=== PATIENT | female | born 1970 | race Caucasian/White ===

== ENCOUNTER → 2020-09-17 10:02 | Outpatient (CLI) | payer OTHER, SELFPAY ==
--- NOTE | 2020-09-17 10:07 | RAD_ITS ---
STUDY: X-RAY - LUMBAR SPINE REASON FOR EXAM: Female, 50 years old. BACK PAIN TECHNIQUE: 4 view(s) of the lumbar spine were obtained. COMPARISON: None FINDINGS: Normal lumbar lordosis. There is no substantial scoliosis. There is a normal alignment of the vertebrae. Normal vertebral bodies and endplates. Normal disc space heights. The soft tissue structures are unremarkable. RAD/Lumbar Spine 2 or 3 Views IMPRESSION: Normal x-ray examination of the lumbar spine. Electronically Signed: Kenyon Linn MD at 14:34 EDT , Service support ,
== END ==
PROVIDERS: PCP Family Medicine; Referring Provider Anesthesiology Pain Medicine; Visit Provider Anesthesiology Pain Medicine
DX: M54.9 Dorsalgia, unspecified (principal)
CPT/HCPCS: 72100

== ENCOUNTER → 2024-09-17 | Outpatient (CLI) | payer OTHER, SELFPAY ==
--- NOTE | 2024-09-17 14:00 | MRI_ITS ---
PROCEDURE: SPINE LUMBAR (ROUTINE) 09/17/2024 REASON FOR EXAM: PAIN TECHNIQUE: Multiplanar and multisequence images were obtained without IV contrast administration. FINDINGS: There is normal lumbar vertebral body height and alignment with normal conus. No tethered cord. No cauda equina compression. The abdominal aorta exhibits normal caliber and there are no paravertebral mass lesions. L1-L2, L2-L3, L3-L4 are unremarkable. Mild facet arthrosis at L4-5 without spinal stenosis. At L5-S1 degenerative disc space narrowing is present with inferior foraminal narrowing but no nerve root impingement or significant spinal stenosis MRI/Spine Lumbar (Routine) IMPRESSION: Mild degenerative changes without significant spinal canal narrowing or nerve r oot compression [facility]
== END | disposition home or self-care (01) ==
LOC: MRI 13:33
PROVIDERS: PCP Family Medicine; Referring Provider Student in an Organized Health Care Education/Training Program; Visit Provider Student in an Organized Health Care Education/Training Program
DX: M51.369 Other intervertebral disc degeneration, lumbar region without mention of lumbar back pain or lower extremity pain (principal)
CPT/HCPCS: 72148

== ENCOUNTER 2024-12-21 14:32 | Observation (INO) | payer OTHER, SELFPAY ==
--- NOTE | 2024-12-07 16:47 | PAT.ANESEVAL ---
Pre-Assessment Diagnosis/Proposed Procedure Planned Operative Procedure(s): Transforaminal Lumbar Interbody Fusion L5-S1 Anesthesia History Anesthesia History - ocular care aide: Anesthesia History - ocular care aide Hx Hospitalization No 12/07/24 10:21 Any Problems With Anesthesia No 12/07/24 10:21 Cholinesterase deficiency No 12/07/24 10:21 You/Your Family Experience No 12/07/24 10:21 fever (hyperthermia) with Relationship Recent Exposure to Contagious Disease Does patient have nerve No 12/07/24 10:21 stimulator Patient instructed to have device shut off --Does patient have Pacemaker or ICD? When Was Last Pacemaker Check QUESTION #4 FULL TEXT: You/Your Family Experience fever (hyperthermia) with Anesthesia Last Oral Intake Last Oral intake: Last Oral Intake NPO since Meds taken in AM with sips of water? Meds patient instructed to take am of surgery PONV PONV - ocular care aide: PONV - ocular care aide Female Yes 12/07/24 10:21 HX of Motion Sickness No 12/07/24 10:21 HX of N/V After Surgery No 12/07/24 10:21 Non-Smoker Yes 12/07/24 10:21 Duration of Surgery greater Yes 12/07/24 10:21 than 60 minutes Number of Risk Factors 3 12/07/24 10:21 PONV Score Moderate Risk 12/07/24 10:21 Height & Weight Height & Weight: Anesthesia: Height & Weight Height 5 ft 5 in 10/04/24 12:53 Respiratory Assessment Respiratory Assessment - ocular care aide: Respiratory Tract Infection Hx - ocular care aide Hx Respiratory Tract Infection No 12/07/24 10:21 STOP Sleep Apnea STOP Sleep Apnea - ocular care aide: STOP Sleep Apnea - ocular care aide Hx Hypertension No 12/07/24 10:21 Hx Sleep Apnea No 12/07/24 10:21 CPAP BIPAP Do you snore loudly (louder No 12/07/24 10:21 than talking or can be heard Do you often feel tired/ No 12/07/24 10:21 fatigued/ sleepy during daytime? Has anyone observed you stop No 12/07/24 10:21 breathing during sleep? STOP Results Negative 12/07/24 10:21 QUESTION #5 FULL TEXT : Do you snore loudly (louder than talking or can be heard through closed doors)? 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 Specify any problems Hx of Preganancy in last 3 No 12/07/24 10:21 Months Nurse Filling Out Transfusion VCHRISTIN 12/07/24 10:21 & Questions: Date: 12/07/24 12/07/24 10:21 Time: 10:22 12/07/24 10:21 Patient unable to answer at this time (ie. confused, unrespo /Reproduction History /Reproductive History - ocular care aide: /Reproductive Hx- ocular care aide Hx Now No 12/07/24 10:21 Gestational Age (in weeks): EDC: Hx Hx Para Hx Section SAB No 12/07/24 10:21 [facility] Medical History (Updated 12/07/24 @ 10:21 by Meenakshi Phillips) Wears glasses Post-menopausal History of steroid therapy Thyroid disease DVT (deep venous thrombosis) Back pain History of hiatal hernia Asthma Gastric reflux Damage to cervix after ectopic Normal hysteroscopy Gallbladder abscess Cancer Depression Home Medications ?Medication ?Instructions ?Recorded ?Last Taken ?Type omeprazole magnesium 20 mg 20 mg PO QDAY 07/05/24 Unknown History tablet,delayed release (Prilosec OTC) cetirizine 10 mg capsule (Zyrtec) 10 mg PO QDAY PRN allergy symptoms 10/04/24 Unknown History diaper,brief,adult,disposable 10/04/24 Unknown History (Khushboo Super Brief) lactobacillus combination no.9 4 4,000 mmu cells PO QDAY 10/04/24 Unknown History billion cell capsule (Adult 50 Plus Probiotic) oxycodone 5 mg capsule 5 mg PO BID PRN pain 10/04/24 Unknown History CORTISTOP 2 tab PO DAILY 12/07/24 Unknown History THYROMIN 1 tab PO DAILY 12/07/24 Unknown History albuterol sulfate 90 mcg/actuation 2 puff inhalation Q4H PRN PRN 12/07/24 Unknown History aerosol inhaler shortness of breath or wheezing cholecalciferol (vitamin D3) 50 100 mcg PO QDAY 12/07/24 Unknown History mcg (2,000 unit) capsule (Vitamin D3) vitamin B complex (Balanced B-50 1 tab PO DAILY 12/07/24 Unknown History tablet) Allergy/AdvReac Type Severity Reaction Status Date / Time No Known Allergies Allergy Verified 12/07/24 10:07 Family History Mother No problems noted. Father No problems noted. Surgical History (Updated 12/07/24 @ 10:21 by Meenakshi Phillips) Hx of rotator cuff surgery Hx laparoscopic cholecystectomy Hx of hysterectomy Delivery by section Social History Smoking Status: Never smoker alcohol intake: current Audit: Pertinent Findings Pertinent Findings EKG Perinent findings: EKG 09 Sep 2024. Normal sinus rhythm Recommendation Anesthesia Recommendation Anesthesia recommendation: OPTIMIZED for anesthesia
[2024-12-09 11:24] LABS: Hematocrit 43.7 % (37-47); Hemoglobin 14.3 g/dL (12.0-15.0); Immature Granulocytes Count 0.030 X10^3/uL (0.0-0.0); Mean Corp Hgb Conc 32.7 g/dL (32-36); Mean Corpuscular Volume 91.2 fL (81-99); Mean Platelet Vol. 12.7 fl (6.2-12.0); NRBC Flagged by Analyzer 0 % (0-5); Platelet Count 168 K/mm3 (150-450); RBC Distribution Width CV 12.7 % (11.6-14.6); RBC Distribution Width SD 42.6 fl (35.1-43.9); Red Blood Count 4.79 M/mm3 (4.2-5.4); White Blood Count 8.2 K/mm3 (4.4-11.0)
[2024-12-09 12:02] LABS: Magnesium 2.3 mg/dL (1.5-2.2)
[2024-12-09 12:23] LABS: HIV Nonreactive (Nonreactive); Hepatitis C Antibody Nonreactive (Nonreactive)
[2024-12-09 12:25] LABS: Anion Gap 14 (5-15); BUN 12 mg/dL (4-19); BUN/Creat Ratio 11.7 RATIO (10-20); Calcium,Total 10.4 mg/dL (7.6-11.0); Carbon Dioxide 21.0 mmol/L (21.0-32.0); Chloride 102 mmol/L (98-108); Glucose 67 mg/dL (70-99); Potassium 4.7 mmol/L (3.3-5.1)
--- NOTE | 2024-12-12 12:50 | PAT.ANESEVAL ---
Pre-Assessment Diagnosis/Proposed Procedure Planned Operative Procedure(s): Transforaminal Lumbar Interbody Fusion L5-S1 Anesthesia History Anesthesia History - management trainee program stores: Anesthesia History - management trainee program stores Hx Hospitalization No 12/07/24 10:21 Any Problems With Anesthesia No 12/07/24 10:21 Cholinesterase deficiency No 12/07/24 10:21 You/Your Family Experience No 12/07/24 10:21 fever (hyperthermia) with Relationship Recent Exposure to Contagious Disease Does patient have nerve No 12/07/24 10:21 stimulator Patient instructed to have device shut off --Does patient have Pacemaker or ICD? When Was Last Pacemaker Check QUESTION #4 FULL TEXT: You/Your Family Experience fever (hyperthermia) with Anesthesia Last Oral Intake Last Oral intake: Last Oral Intake NPO since Meds taken in AM with sips of water? Meds patient instructed to take am of surgery PONV PONV - management trainee program stores: PONV - management trainee program stores Female Yes 12/07/24 10:21 HX of Motion Sickness No 12/07/24 10:21 HX of N/V After Surgery No 12/07/24 10:21 Non-Smoker Yes 12/07/24 10:21 Duration of Surgery greater Yes 12/07/24 10:21 than 60 minutes Number of Risk Factors 3 12/07/24 10:21 PONV Score Moderate Risk 12/07/24 10:21 Height & Weight Height & Weight: Anesthesia: Height & Weight Height 5 ft 5 in 10/04/24 12:53 Respiratory Assessment Respiratory Assessment - management trainee program stores: Respiratory Tract Infection Hx - management trainee program stores Hx Respiratory Tract Infection No 12/07/24 10:21 STOP Sleep Apnea STOP Sleep Apnea - management trainee program stores: STOP Sleep Apnea - management trainee program stores Hx Hypertension No 12/07/24 10:21 Hx Sleep Apnea No 12/07/24 10:21 CPAP BIPAP Do you snore loudly (louder No 12/07/24 10:21 than talking or can be heard Do you often feel tired/ No 12/07/24 10:21 fatigued/ sleepy during daytime? Has anyone observed you stop No 12/07/24 10:21 breathing during sleep? STOP Results Negative 12/07/24 10:21 QUESTION #5 FULL TEXT : Do you snore loudly (louder than talking or can be heard through closed doors)? 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 Specify any problems Hx of Preganancy in last 3 No 12/07/24 10:21 Months Nurse Filling Out Transfusion VCHRISTIN 12/07/24 10:21 & Questions: Date: 12/07/24 12/07/24 10:21 Time: 10:22 12/07/24 10:21 Patient unable to answer at this time (ie. confused, unrespo /Reproduction History /Reproductive History - management trainee program stores: /Reproductive Hx- management trainee program stores Hx Now No 12/07/24 10:21 Gestational Age (in weeks): EDC: Hx Hx Para Hx Section SAB No 12/07/24 10:21 [facility] Medical History (Updated 12/07/24 @ 10:21 by Meenakshi Phillips) Wears glasses Post-menopausal History of steroid therapy Thyroid disease DVT (deep venous thrombosis) Back pain History of hiatal hernia Asthma Gastric reflux Damage to cervix after ectopic Normal hysteroscopy Gallbladder abscess Cancer Depression Home Medications ?Medication ?Instructions ?Recorded ?Last Taken ?Type omeprazole magnesium 20 mg 20 mg PO QDAY 07/05/24 Unknown History tablet,delayed release (Prilosec OTC) cetirizine 10 mg capsule (Zyrtec) 10 mg PO QDAY PRN allergy symptoms 10/04/24 Unknown History diaper,brief,adult,disposable 10/04/24 Unknown History (Khushboo Super Brief) lactobacillus combination no.9 4 4,000 mmu cells PO QDAY 10/04/24 Unknown History billion cell capsule (Adult 50 Plus Probiotic) oxycodone 5 mg capsule 5 mg PO BID PRN pain 10/04/24 Unknown History CORTISTOP 2 tab PO DAILY 12/07/24 Unknown History THYROMIN 1 tab PO DAILY 12/07/24 Unknown History albuterol sulfate 90 mcg/actuation 2 puff inhalation Q4H PRN PRN 12/07/24 Unknown History aerosol inhaler shortness of breath or wheezing cholecalciferol (vitamin D3) 50 100 mcg PO QDAY 12/07/24 Unknown History mcg (2,000 unit) capsule (Vitamin D3) vitamin B complex (Balanced B-50 1 tab PO DAILY 12/07/24 Unknown History tablet) Allergy/AdvReac Type Severity Reaction Status Date / Time No Known Allergies Allergy Verified 12/07/24 10:07 Family History Mother No problems noted. Father No problems noted. Surgical History (Updated 12/07/24 @ 10:21 by Meenakshi Phillips) Hx of rotator cuff surgery Hx laparoscopic cholecystectomy Hx of hysterectomy Delivery by section Social History Smoking Status: Never smoker alcohol intake: current Audit: Pertinent Findings HISTORY of Pertinent Findings History of Pertinent Findings: EKG Pertinent Findings EKG Perinent findings EKG 09 Sep 2024. Normal 12/07/24 16:48 sinus rhythm Pertinent Findings Additional pertinent findings: December 09, 2024. TSH is 11.0 Recommendation Anesthesia Recommendation Anesthesia recommendation: F/U recommended (Patient's TSH is significantly elevated at 11.0. Patient should be evaluated by primary care physician and have their thyroid hormone adjusted.)
--- NOTE | 2024-12-19 19:24 | PAT.ANESEVAL ---
Pre-Assessment Diagnosis/Proposed Procedure Planned Operative Procedure(s): Transforaminal Lumbar Interbody Fusion L5-S1 Anesthesia History Anesthesia History - vacation planner: Anesthesia History - vacation planner Hx Hospitalization No 12/07/24 10:21 Any Problems With Anesthesia No 12/07/24 10:21 Cholinesterase deficiency No 12/07/24 10:21 You/Your Family Experience No 12/07/24 10:21 fever (hyperthermia) with Relationship Recent Exposure to Contagious Disease Does patient have nerve No 12/07/24 10:21 stimulator Patient instructed to have device shut off --Does patient have Pacemaker or ICD? When Was Last Pacemaker Check QUESTION #4 FULL TEXT: You/Your Family Experience fever (hyperthermia) with Anesthesia Last Oral Intake Last Oral intake: Last Oral Intake NPO since Meds taken in AM with sips of water? Meds patient instructed to take am of surgery PONV PONV - vacation planner: PONV - vacation planner Female Yes 12/07/24 10:21 HX of Motion Sickness No 12/07/24 10:21 HX of N/V After Surgery No 12/07/24 10:21 Non-Smoker Yes 12/07/24 10:21 Duration of Surgery greater Yes 12/07/24 10:21 than 60 minutes Number of Risk Factors 3 12/07/24 10:21 PONV Score Moderate Risk 12/07/24 10:21 Height & Weight Height & Weight: Anesthesia: Height & Weight Height 5 ft 5 in 10/04/24 12:53 Respiratory Assessment Respiratory Assessment - vacation planner: Respiratory Tract Infection Hx - vacation planner Hx Respiratory Tract Infection No 12/07/24 10:21 STOP Sleep Apnea STOP Sleep Apnea - vacation planner: STOP Sleep Apnea - vacation planner Hx Hypertension No 12/07/24 10:21 Hx Sleep Apnea No 12/07/24 10:21 CPAP BIPAP Do you snore loudly (louder No 12/07/24 10:21 than talking or can be heard Do you often feel tired/ No 12/07/24 10:21 fatigued/ sleepy during daytime? Has anyone observed you stop No 12/07/24 10:21 breathing during sleep? STOP Results Negative 12/07/24 10:21 QUESTION #5 FULL TEXT : Do you snore loudly (louder than talking or can be heard through closed doors)? 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 Specify any problems Hx of Preganancy in last 3 No 12/07/24 10:21 Months Nurse Filling Out Transfusion VCHRISTIN 12/07/24 10:21 & Questions: Date: 12/07/24 12/07/24 10:21 Time: 10:22 12/07/24 10:21 Patient unable to answer at this time (ie. confused, unrespo /Reproduction History /Reproductive History - vacation planner: /Reproductive Hx- vacation planner Hx Now No 12/07/24 10:21 Gestational Age (in weeks): EDC: Hx Hx Para Hx Section SAB No 12/07/24 10:21 [facility] Medical History (Updated 12/19/24 @ 17:35 by Miranda Kim) Morbid obesity Wears glasses Post-menopausal History of steroid therapy Thyroid disease DVT (deep venous thrombosis) Back pain History of hiatal hernia Asthma Gastric reflux Damage to cervix after ectopic Normal hysteroscopy Gallbladder abscess Cancer Depression Home Medications ?Medication ?Instructions ?Recorded ?Last Taken ?Type omeprazole magnesium 20 mg 20 mg PO QDAY 07/05/24 Unknown History tablet,delayed release (Prilosec OTC) cetirizine 10 mg capsule (Zyrtec) 10 mg PO QDAY PRN allergy symptoms 10/04/24 Unknown History diaper,brief,adult,disposable 10/04/24 Unknown History (Khushboo Super Brief) lactobacillus combination no.9 4 4,000 mmu cells PO QDAY 10/04/24 Unknown History billion cell capsule (Adult 50 Plus Probiotic) oxycodone 5 mg capsule 5 mg PO BID PRN pain 10/04/24 Unknown History CORTISTOP 2 tab PO DAILY 12/07/24 Unknown History THYROMIN 1 tab PO DAILY 12/07/24 Unknown History albuterol sulfate 90 mcg/actuation 2 puff inhalation Q4H PRN PRN 12/07/24 Unknown History aerosol inhaler shortness of breath or wheezing cholecalciferol (vitamin D3) 50 100 mcg PO QDAY 12/07/24 Unknown History mcg (2,000 unit) capsule (Vitamin D3) vitamin B complex (Balanced B-50 1 tab PO DAILY 12/07/24 Unknown History tablet) magnesium 200 mg tablet 200 mg PO QDAY 12/13/24 Unknown History Allergy/AdvReac Type Severity Reaction Status Date / Time No Known Allergies Allergy Verified 12/13/24 10:35 Family History Mother No problems noted. Father No problems noted. Surgical History Hx of rotator cuff surgery Hx laparoscopic cholecystectomy Hx of hysterectomy Delivery by section Social History Smoking Status: Never smoker alcohol intake: current Audit: Pertinent Findings HISTORY of Pertinent Findings History of Pertinent Findings: EKG Pertinent Findings EKG Perinent findings EKG 09 Sep 2024. Normal 12/07/24 16:48 sinus rhythm Additional Pertinent Findings Additional pertinent findings December 09, 2024. TSH is 11. 12/12/24 12:57 0 Pertinent Findings Consult pertinent findings: Patient was seen by her PCP whom did not change anything after acknowledgment of a TSH of 11. Recommendation Anesthesia Recommendation Anesthesia recommendation: OPTIMIZED for anesthesia
[2024-12-21] VITALS (16 sets, daily range): BP systolic 96–147; BP diastolic 66–96; PULSE 80–97; RESP 12–20; TEMP 36.1–37; O2SAT 95–99; BMI 41.4; BMI 41.5
[2024-12-21] MEDS: Lactated Ringers 1,000 ML 15 ML IV (09:57)
[2024-12-21] MEDS: Magnesium 1 GM over 15 mins IV (09:58)
--- NOTE | 2024-12-21 10:20 | PCM.PRE.AN2 ---
ASA Classification* ASA Classification ASA Classification: 3 Assessment & Plan Anesthesia* Anesthesia Assessment Anesthesia Assessment: Discussed sedation and/or anesthesia options, risks, benefits, and alternatives with patient/parents/legal guardian/POA. Questions invited. The patient/parents/legal guardian/POA seems to understand and agrees to proceed with anesthesia plan. Reviewed the physical assessment, medical history, allergy history and patient home medications list prior to surgery/procedure/anesthetic and documented any changes. Performed airway and anesthesia risk assessments. Anesthesia Type Anesthesia Type: General History Source History Obtained from:: Patient and Chart Anesthesia Focused Assessment* Temperature: 97.8 F Pulse Rate: 85 Blood Pressure: 133/96 Respiratory Rate: 16 Pulse Ox: 99 Oxygen Delivery Method: Room Air Airway Assessment Mouth opens: 2 cm Mallampati Score: II Teeth Condition: Intact Neck Range of motion (ROM): Full ROM Labs Anesthesia Preop lab: CBC WBC 8.2 K/mm3 (4.4-11.0) 12/09/24 10:14 12/09/24 RBC 4.79 M/mm3 (4.2-5.4) 12/09/24 10:14 12/09/24 Hgb 14.3 g/dL (12.0-15.0) 12/09/24 10:14 12/09/24 Hct 43.7 % (37-47) 12/09/24 10:14 12/09/24 Plt Count 168 K/mm3 (150-450) 12/09/24 10:14 12/09/24 CHEMISTRY Potassium 4.7 mmol/L (3.3-5.1) 12/09/24 10:14 12/09/24 Sodium 137 mmol/L (133-145) 12/09/24 10:14 12/09/24 Magnesium 2.3 mg/dL (1.5-2.2) H 12/09/24 10:15 12/09/24 BUN 12 mg/dL (4-19) 12/09/24 10:14 12/09/24 Creatinine 1.02 mg/dL (0.70-1.20) 12/09/24 10:14 12/09/24 Glucose 67 mg/dL (70-99) L 12/09/24 10:14 12/09/24 TSH 11.000 uIU/mL (0.300-4.200) H 12/09/24 10:15 12/09/24 COAG Pre-Assessment Diagnosis/Proposed Procedure Planned Operative Procedure(s): Transforaminal Lumbar Interbody Fusion L5-S1 Anesthesia History 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 When Was Last Pacemaker Check QUESTION #4 FULL TEXT: You/Your Family Experience fever (hyperthermia) with Anesthesia Last Oral Intake Last Oral intake: Last Oral Intake NPO since 19:30 12/21/24 09:51 Meds taken in AM with sips of No 12/21/24 09:51 water? 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 Female Yes 12/07/24 10:21 HX of Motion Sickness No 12/07/24 10:21 HX of N/V After Surgery No 12/07/24 10:21 Non-Smoker Yes 12/07/24 10:21 Duration of Surgery greater Yes 12/07/24 10:21 than 60 minutes Number of Risk Factors 3 12/07/24 10:21 PONV Score Moderate Risk 12/07/24 10:21 Height & Weight Height & Weight: Anesthesia: Height & Weight Height 5 ft 5 in 12/21/24 09:51 Weight: 113 kg 12/21/24 09:51 Body Mass Index (BMI) 41.4 12/21/24 09:51 Respiratory Assessment Respiratory Assessment - supervisor aluminum fabrication: Respiratory Tract Infection Hx - supervisor aluminum fabrication Hx Respiratory Tract Infection No 12/07/24 10:21 STOP Sleep Apnea STOP Sleep Apnea - supervisor aluminum fabrication: STOP Sleep Apnea - supervisor aluminum fabrication Hx Hypertension No 12/07/24 10:21 Hx Sleep Apnea No 12/07/24 10:21 CPAP BIPAP Do you snore loudly (louder No 12/07/24 10:21 than talking or can be heard Do you often feel tired/ No 12/07/24 10:21 fatigued/ sleepy during daytime? Has anyone observed you stop No 12/07/24 10:21 breathing during sleep? STOP Results Negative 12/07/24 10:21 QUESTION #5 FULL TEXT : Do you snore loudly (louder than talking or can be heard through closed doors)? 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 Specify any problems Hx of Preganancy in last 3 No 12/07/24 10:21 Months Nurse Filling Out Transfusion VCHRISTIN 12/07/24 10:21 & Questions: Date: 12/07/24 12/07/24 10:21 Time: 10:22 12/07/24 10:21 Patient unable to answer at this time (ie. confused, unrespo /Reproduction History /Reproductive History - supervisor aluminum fabrication: /Reproductive Hx- supervisor aluminum fabrication Hx Now No 12/07/24 10:21 Gestational Age (in weeks): EDC: Hx Hx Para Hx Section SAB No 12/07/24 10:21 Active Medications Active Medications: Current Medications Generic Name Dose Route Start Last Admin Trade Name Freq PRN Reason Stop Dose Admin Acetaminophen 1,000 mg 12/21/24 11:30 12/21/24 10:01 Acetaminophen 500 Mg Tablet PO 12/21/24 11:31 1,000 mg PREOP ONE Administration Cefazolin Sodium 2 gm/ Sodium 110 mls @ 150 mls/hr 12/21/24 11:30 Chloride IV 12/21/24 12:13 INTRAOP ONE Tranexamic Acid 1,000 mg/ 110 mls @ 440 mls/hr 12/21/24 11:30 Sodium Chloride IV 12/21/24 11:44 INTRAOP ONE Tranexamic Acid 1,000 mg/ 110 mls @ 440 mls/hr 12/21/24 11:30 Sodium Chloride IV 12/21/24 11:44 INTRAOP ONE Magnesium Sulfate 1 gm/ 102 mls @ 408 mls/hr 12/21/24 11:30 12/21/24 09:58 Dextrose IV 12/21/24 11:44 408 mls/hr PREOP ONE Administration Lactated Ringer's 1,000 mls @ 15 mls/hr 12/21/24 09:45 12/21/24 09:57 IV 15 mls/hr .Q48H WILMA Administration Insulin Human Lispro 1 - 6 unit 12/21/24 11:30 Insulin Lispro 100 Unit/Ml Insuln.Pen SC 12/21/24 18:00 Q4H PRN PRN BG>/= 180, SEE PROTOCOL Protocol PFSH Medical History (Updated 12/19/24 @ 17:35 by Miranda Kim) Morbid obesity Wears glasses Post-menopausal History of steroid therapy Thyroid disease DVT (deep venous thrombosis) Back pain History of hiatal hernia Asthma Gastric reflux Damage to cervix after ectopic Normal hysteroscopy Gallbladder abscess Cancer Depression Home Medications ?Medication ?Instructions ?Recorded ?Last Taken ?Type omeprazole magnesium 20 mg 20 mg PO QDAY 07/05/24 12/20/24 History tablet,delayed release (Prilosec OTC) cetirizine 10 mg capsule (Zyrtec) 10 mg PO QDAY PRN allergy symptoms 10/04/24 12/20/24 History diaper,brief,adult,disposable 10/04/24 Unknown History (Khushboo Super Brief) lactobacillus combination no.9 4 4,000 mmu cells PO QDAY 10/04/24 12/20/24 History billion cell capsule (Adult 50 Plus Probiotic) oxycodone 5 mg capsule 5 mg PO BID PRN pain 10/04/24 Unknown History CORTISTOP 2 tab PO DAILY 12/07/24 12/20/24 History THYROMIN 1 tab PO DAILY 12/07/24 12/20/24 History albuterol sulfate 90 mcg/actuation 2 puff inhalation Q4H PRN PRN 12/07/24 Unknown History aerosol inhaler shortness of breath or wheezing cholecalciferol (vitamin D3) 50 100 mcg PO QDAY 12/07/24 12/20/24 History mcg (2,000 unit) capsule (Vitamin D3) vitamin B complex (Balanced B-50 1 tab PO DAILY 12/07/24 12/20/24 History tablet) magnesium 200 mg tablet 200 mg PO QDAY 12/13/24 12/20/24 History Allergy/AdvReac Type Severity Reaction Status Date / Time No Known Allergies Allergy Verified 12/21/24 09:49 Family History Mother No problems noted. Father No problems noted. Surgical History Hx of rotator cuff surgery Hx laparoscopic cholecystectomy Hx of hysterectomy Delivery by section Social History Smoking Status: Never smoker alcohol intake: current Review of Systems (Anesthesia) ROS Narrative System reviewed and no additional complaints, except as documented.
--- NOTE | 2024-12-21 10:30 | RAD_ITS ---
PROCEDURE: LUMBAR SPINE 2 OR 3 VIEWS 12/21/2024 REASON FOR EXAM: TRANSFORAMINAL LUMBAR INTERBODY FUSION L5-S1 TECHNIQUE: LUMBAR SPINE 2 OR 3 VIEWS FINDINGS: Intraoperative fluoroscopy was performed of the lumbar spine. 155.6 seconds. 170.09 mGy. See procedure report for full details. RAD/Lumbar Spine 2 or 3 Views IMPRESSION: As above. Reading Location: [id number]
--- NOTE | 2024-12-21 10:41 | PCM.HP.BLA ---
History and Physical Date of Admission: 12/21/24 MR#: [id number] Acct: [id number] Name: CLARI SCHMITT Rep #: [id number] : 1970 Provider: Dr. Chepe Riddle MD Age/Sex: 54/F Location: [facility] [place] Status: Signed Intake Vital Signs 10/05/2511:53 12/13/2509:34 Height 5 ft 5 in 5 ft 5 in Weight: 245 lb 256 lb 8 oz BMI 40.7 42.7 Intake Visit Reasons: lumbar spine Chief Complaint: Pre-Op Lumbar Spine Accompanied by: Self Is patient in pain?: Yes Pain scale (1-10): 6 Allergies No Known Allergies Allergy (Verified 12/13/24 10:35) Medications ?Medication ?Instructions ?Recorded ?Confirmed ?Type omeprazole magnesium 20 mg 20 mg PO QDAY 07/05/24 12/13/24 History tablet,delayed release (Prilosec OTC) cetirizine 10 mg capsule (Zyrtec) 10 mg PO QDAY PRN allergy symptoms 10/04/24 12/13/24 History diaper,brief,adult,disposable 10/04/24 10/04/24 History (Khushboo Super Brief) lactobacillus combination no.9 4 4,000 mmu cells PO QDAY 10/04/24 12/13/24 History billion cell capsule (Adult 50 Plus Probiotic) oxycodone 5 mg capsule 5 mg PO BID PRN pain 10/04/24 12/13/24 History CORTISTOP 2 tab PO DAILY 12/07/24 12/13/24 History THYROMIN 1 tab PO DAILY 12/07/24 12/13/24 History albuterol sulfate 90 mcg/actuation 2 puff inhalation Q4H PRN PRN 12/07/24 12/13/24 History aerosol inhaler shortness of breath or wheezing cholecalciferol (vitamin D3) 50 100 mcg PO QDAY 12/07/24 12/13/24 History mcg (2,000 unit) capsule (Vitamin D3) vitamin B complex (Balanced B-50 1 tab PO DAILY 12/07/24 12/13/24 History tablet) magnesium 200 mg tablet 200 mg PO QDAY 12/13/24 12/13/24 History PFSH Medical History Morbid obesity Wears glasses Post-menopausal History of steroid therapy Thyroid disease DVT (deep venous thrombosis) Back pain History of hiatal hernia Asthma Gastric reflux Damage to cervix after ectopic Normal hysteroscopy Gallbladder abscess Cancer Depression Surgical History Hx of rotator cuff surgery Hx laparoscopic cholecystectomy Hx of hysterectomy Delivery by section Family History Mother No problems noted. Father No problems noted. Social History Smoking Status: Never smoker alcohol intake: current HPI lumbar spine Details: This documentation accurately reflects the service provided and the decisions made by me, Dr. Chepe Riddle MD 12/13/24 1025. Part of today?s visit was documented by Malissa Mccall ATC, acting as scribe. CLARI SCHMITT is a 54 year old F here today for lumbar spine pre-op transforaminal lumbar interbody fusion L5-S1 DOS 12/21/2024. Patient rates her pain a 6/10 today. She denies any recent injections. She states the last injection was 09/15/2024. The patient is a 54-year-old female presenting with lumbar disc degeneration and spondylolisthesis. She reports being unable to stand for more than half an hour to an hour due to constant pain localized in the center of her back. The pain does not radiate down her legs, and she has tried injections and physical therapy in the past, which initially provided relief but are no longer effective. The patient's MRI from August and x-rays from September show a collapsed L5-S1 disc with slight spondylolisthesis, causing instability and pain. She experiences heaviness in her legs, which is equal on both sides, but denies numbness. The patient also has a history of rotator cuff surgery and is currently experiencing post-surgical shoulder pain. She is undergoing physical therapy twice a week for her shoulder and is in phase three of her recovery. - Musculoskeletal: Reports constant back pain, heaviness in legs; Denies leg pain or numbness. - Neurological: Denies numbness or weakness in legs. Attestation: Documentation on this patient encounter was supported using ambient scribe technology/ voice AI technology. The patient consented to recording for the purpose of documenting the encounter. Provider reviewed content of the generated note prior to signature. 10/04/24: CLARI SCHMITT is a 54 year old F here today for lumbar spine MRI review. Patient would like to go over the MRI results to discuss what the next step is. 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 Tailbone pain and pain with sitting since the fall. Patient states that she has been having some balance issues due to low back pain. Surgery from rotator cuff surgery from Dr. Ender Stahl on September 15. Hx of 2 c sections. Takes a baby aspirin after the rotator cuff surgery. HPI from 07/05/24: CLARI SCHMITT is a 54 year old F here today for lumbar spine pain. This started in 2001 following a fall, they did xrays. [facility] stated it was a bulging disc. Patient has always been bothered by this. She started doing pain management with Dr. Watkins 2 years ago. Patient has gotten cortisone shots. The shots were helping. She got a epidural in May which didn't help. Denies going to physical therapy. The pain is in the lower back, and sometimes the pain shoots up the spine. Says that her pain is midline and does not lateralize to either side. Denies any radicular symptoms. Driving does not help, it makes the pain worse. She does occasionally use heat, it feels good on the lower back. No pain in the legs. Worsening over the last 2 years. She has had injections every 2-3 months over the last 2 years. Says that at first the injections seemed to work. No pain down the legs. Walking increases pain. Worsens with sitting. Denies any balance or dexterity issues. No diabetes, no heart or lung issues, no blood thinners. Ortho Exam General General: Yes no acute distress Neurologic: Yes alert and Yes oriented x3 Psychologic: Yes reasonable and appropriate Spine SPINE TESTING CERVICAL THORACIC LUMBAR Musculoskeletal Strength 0=absent - 5=normal Details: Neurological exam of the lower extremities shows 5x5 power. Normal sensations across all dermatomes. No hyperreflexia. No midline or paraspinal tenderness. Figure 4 negative. Brennen's negative. Coding Level of Care Code Off vis,est,level 4 Diagnoses Degenerative disc disease (DDD) of lumbar region with axial back pain without leg pain M51.360 Degeneration of intervertebral disc of lumbar region with discogenic back pain M51.360 Disc-related pain type: discogenic back pain only Morbid obesity E66.01 Time Spent (min) 35 Assessment and Plan Assessment and Plan (1) Degenerative disc disease (DDD) of lumbar region with axial back pain without leg pain: Status: Acute (2) Degenerative disc disease, lumbar: Status: Acute Qualifiers: Disc-related pain type: discogenic back pain only Qualified Code(s): M51.360 - Other intervertebral disc degeneration, lumbar region with discogenic back pain only (3) Morbid obesity: Status: Acute Plan Again reviewed prior X-rays show disc height loss most notable at L5-S1. Potentially a subtle spondylolisthesis of L5 on S1 related to the degenerative change. No fractures. Reviewed lumbar MRI from September 17, 2024 which showed L5-S1 disc space narrowing without any severe central canal stenosis. 1. Lumbar disc degeneration at L5-S1 - The patient is scheduled for minimally invasive lumbar spine surgery to address the collapsed disc and spondylolisthesis. - The plan includes using screws and rods to stabilize the spine and alleviate pain. - Post-operative care will involve early mobilization, physical therapy, and pain management. 2. Post-surgical shoulder pain - The patient will continue with physical therapy for her shoulder, with restrictions on lifting and movements to avoid exacerbating her back pain. - Coordination with her shoulder therapy will be necessary to ensure optimal recovery. - Follow post-operative instructions carefully, including early mobilization and physical therapy. - Use a walker if needed for support during initial recovery. - Avoid lifting heavy objects and excessive bending or twisting for the first three months post-surgery. - Continue shoulder physical therapy with attention to back pain limitations. - Monitor for any signs of infection or complications and report them immediately. Explained imaging findings in detail. At this time due to the patient's ongoing low back pain that has decreased her quality of life and because the patient has attempted multiple different conservative treatments which includes many injections with pain management with no significant improvement discussed surgical options today which includes an L5-S1 TLIF. Because of her low back pain she has not been able to do what she wishes to do which includes hiking and being with her grandchildren. At this time the patient wishes to proceed with the fusion surgery. Explained the procedure in detail and discussed risks and benefits. Discussed this procedure in detail and explained the risks, benefits and alternatives. The risks of surgery include but are not limited to infection, bleeding, injury to nerves and vessels, ileus, visceral injury, vascular injury, need for blood transfusion, persistent pain, persistent numbness and weakness, gait abnormality, DVT, pulmonary embolism, pneumonia, atelectasis, hardware failure, pseudoarthrosis, need for further surgery, adjacent segment degeneration. Discussed post-surgery restrictions such as no bending, lifting, or twisting. Answered all questions to the patient?s satisfaction. Patient understands and agrees to proceed with surgery. Consent was signed.Follow up 2 weeks after surgery or sooner if pain, swelling, numbness or associated symptoms, or concerns develop. All questions answered. Patient in agreement of plan.
[2024-12-21] MEDS: Cefazolin 1 GM/5 ML Vial 2 GM IV (11:33)
[2024-12-21] MEDS: Midazolam 2 MG/2 ML Syringe 1 MG IV (11:33)
[2024-12-21] MEDS: Lidocaine 1% (5 ml sdv) 5 ML Vial 10 ML IV (11:40)
[2024-12-21] MEDS: PROPOFOL 125.43 MG IV (11:55)
[2024-12-21] MEDS: TRANEXAMIC ACID 1,000 MG/10 ML ML 2000 MG IV (14:09)
[2024-12-21] MEDS: fentaNYL 100 MCG/2 ML Ampul 200 MCG IV (14:11)
--- NOTE | 2024-12-21 14:37 | PCM.OPRPT ---
Procedures Musculoskeletal [id number]: Other Procedure See Report Operative Report (Standard) Operative Information Date of Procedure: 12/21/24 Pre-Operative Diagnosis: L5-S1 spondylolisthesis, disc degeneration, foraminal stenosis Post-Operative Diagnosis: Same Surgery/Procedure Performed: L5-S1 transforaminal lumbar body fusion customer assistance associate: Yes Tax Advisor: Zoie Rosario Tasks completed by telecom assistant: Closing, Implanting device, Hemostasis: Electrocautery and Retracting Type of Anesthesia: General RN Documented Start/Stop Times: Operation Date: 12/21/24 11:30 Case Time Into Pre-Op 12/21/24 09:37 Out of Pre-Op 12/21/24 11:29 Anesthesia Start 12/21/24 11:32 Into Room 12/21/24 11:32 Procedure Start 12/21/24 12:07 Procedure End 12/21/24 14:20 Anesthesia End 12/21/24 14:36 Out of Room 12/21/24 14:36 Procedure Start Time: 12:07 Procedure Stop Time: 14:20 Select all DRAINS/GRAFTS/IMPLANTS that apply: Graft Graft details: Allograft cancellous chips, DBX, morselized autograft from resected lamina and facet and Implanted device Implanted device details: DePuy XPac TLIF cage, Viper prime pedicle screw instrumentation Estimated Blood Loss: 30 cc Specimen collected: No Description of surgery: Preoperative diagnosis: L5-S1 spondylolisthesis, disc degeneration with foraminal stenosis Postoperative diagnosis: Same Name of procedure: L5-S1 transforaminal lumbar interbody fusion (TLIF), minimally invasive right side approach, percutaneous pedicle screw instrumentation. . L5-S1 posterior spinal fusion and interbody fusion 42281 ? L5-S1 posterior pedicle screw instrumentation 26020 . L5-S1 insertion of cage [id number] . Local autograft . Cancellous allograft with DBX Attending Surgeon: Dr. Chepe Riddle Estimated blood loss: 30 mL Anesthesia: GA Complications: None Implants: DePuy Synthes X-PAC TLIF cage, Viper prime screws Indications: Patient is a 54-year-old lady who has had a history of low back pain that radiates into bilateral lower extremity. X-rays and MRI revealed L5-S1 spondylolisthesis, disc degeneration with foraminal stenosis. Patient was explained all options of treatment which included continued nonoperative treatment measures like rest physical therapy, epidural steroidal injections. After a prolonged period of of nonoperative treatment, patient elected to undergo surgical decompression & fusion since the symptoms severely affected her quality of life. All risks and benefits associated with the procedure were explained to the patient. The risks include but are not limited to infection, bleeding, injury to nerves and vessels, persistent paresthesia, persistent pain, dural tear, need for further procedures, adjacent segment degeneration, pseudoarthrosis, hardware failure, etc. Procedure: The patient was identified in the preoperative holding suite using unique patient identifiers. Skin was marked, consent was reviewed, and all questions were answered. The patient was then brought back to the operative room. A surgical timeout was performed to make sure correct procedure was being done on the correct patient and all operative room staff were on the same page. General endotracheal anesthesia was then given to the patient. Neuromonitoring leads were applied. The patient was then turned prone onto a Robson table. The back was prepped and draped in usual fashion. IV antibiotic was given as preoperative antibiotic. A final timeout was then again done just before starting the procedure. C-arm AP view was then taken. C-arm was positioned in a way that L5 was centralized and superior endplate of L5 and was parallel to the beam. Spinous process was centered between the pedicles. Midline was marked with skin marker and lateral borders of the pedicles were also marked. Skin marker was also utilized to ori transversely across the middle of the pedicles at L5. 2 vertical incisions about 1 inch Extending below this line were taken about an inch lateral to the pedicle line. The fascia was also incised vertically approximately the same length. Finger dissection was utilized to palpate the superior articular process and facet joint of L5-S1 on the right side. Sequential tubes were docked on the L5-S1 facet joint and 90 mm length and 21 mm diameter tubular retractor was then placed and was attached to the arm attached to the OR table. Muscle tissue was removed with pituitaries and hemostasis was achieved with Bovie. Right inferior articular process of L5 and superior articular process of S1 were exposed with Bovie. Osteotome was utilized to remove a portion of the inferior articular process to expose the articular surface of S1. Some of this resected bone was used as autograft. Matthew and bone scalpel was then utilized to remove the rest of the inferior articular process and part of the lamina of L5. Superior articular process of S1 was resected with the help of a bur such that the cut was flush with the superior border of S1 pedicle. The traversing nerve root was identified and carefully retracted to expose the disc. Hemostasis was achieved with bipolar cautery. Blunt spreaders were utilized to enter the disc space under C-arm visualization. Pituitary was used to remove disc material. Curettes of various sizes and angulations were utilized to remove as much of the disc material as possible. End plates were curetted to remove all cartilage. Angled curettes were used to remove disc material from the other side underneath the central annulus. Depuy X-PAC trials were inserted into position and checked under C- arm lateral view. The disc space was then filled with cancellous bone chips mixed with DBX and morselized autograft obtained from the resected lamina and facet bone which were then impacted with the trials. An 10 x 28 mm lordotic tall X-PAC cage filled with bone graft was then inserted into the disc space under x-ray control. Care was taken to make sure the cage was inserted deeper to the posterior longitudinal ligament. The expandable cage was then expanded to up to approximately 15 mm anterior height with approximately 15 degrees lordosis. The cage was found to be well fixed and not easily removable. AP and lateral views showed good positioning of the cage. Depuy Viper Prime screw tower was docked onto the transverse processes at L5. This was then slowly moved medially to reach the superior articular process of L5. This was then confirmed on C-arm and then a mallet was utilized to drive the trocar and screw into the pedicle going up to the medial wall of the pedicle on AP view. This was performed both sides. C-arm lateral view confirmed both trocars to be inside vertebral body. The screws were advanced. Similar procedure was done at S1 both sides. Cannulated pedicle screws (Depuy Viper) sizes were 7 x 50 mm bilaterally at L5 and 7 x 45 at S1 levels bilaterally. The lateral view showed good positioning of the screws and cage. 35 mm precontoured titanium 5.5 mm lordotic ranjan on the right and 40 mm on the left were then passed through the screw extensions and reduced down to the screws with the help of Depuy Viper Prime instrumentation system. AP and lateral views of the C-arm showed good positioning of the screws and cage. Final tightening with the torque screwdriver was then completed. Matthew was utilized to decorticate the left L5-S1 facet joint and bone graft was placed over this. Hemostasis was achieved with the help of Bovie and FloSeal. Closure was done in layers with 0 Vicryls for the fascia, 2-0 Vicryls for the subcutaneous tissue, and Monocryl for the skin. Dressings were applied covered with Tegaderm. The patient was then turned supine onto a hospital bed. The patient was extubated and taken to PACU in stable condition. The patient tolerated the procedure well and no complications occurred. [employer] X-PAC cage & Viper Prime minimally invasive pedicle screw instrumentation system was utilized in this case. No dural tear was identified in this case. Multimodal neuro monitoring was utilized. All potentials stayed at baseline throughout the procedure. I was present for the entirety of the case and performed the surgery myself. Pss Delivery Professional Zoie Rosario PA-C. My physician internal medicine physician assistant was a vital part of this case. They were important in appropriate retraction during the case, and protection of soft tissues during the procedure. Their intimate knowledge of the case and my steps aided in safe and expedient completion of the procedure as well as appropriate position of the patient during the surgery. They were also vital in assisting with closure under my direct supervision. Surgical Findings: See operative note Complications Complications: No
--- NOTE | 2024-12-21 14:45 | PCM.POST.ANE ---
Anesthesia: Postop Eval I Current Vital Signs Temperature: 98.5 F Pulse Rate: 88 Blood Pressure: 119/78 Respiratory Rate: 16 Pulse Ox: 96 Assessment Airway patent: Yes Spontaneous unlabored respirations: Yes nausea: No Vomiting: No Anesthesia Complication: No Fluid Hydration Crystalloid volume administer (ml): 1,500 Total IV fluid infused: 1,500 Progress Note Anesthesia document: Postop Eval 1 completed: Yes
--- NOTE | 2024-12-21 16:52 | PCM.CONS.GEN ---
Assessment & Plan Assessment/Plan (1) Thyroid disease: PLAN: Plan #?Thyroid disease - Patient listed as having a thyroid disease but appears she takes thyromin tablets and no synthroid or armour thyroid -TSH elevated -Will check free T4 and T3 -May need repeat labs on an outpatient basis and possible discussion of starting on Synthroid depending on patient's lab work # History of asthma -Albuterol as needed #GERD -Continue PPI #L5-S1 spondylolisthesis, disc degeneration, foraminal stenosis -s/p L5-S1 transforaminal lumbar body fusion with Dr. Riddle 12/21/2024 -Management/pain management per primary #DVT ppx: Timing and agent at discretion of primary Meredith Cardozo MD Time spent in the patient's overall evaluation, decision-making process, review of diagnostic data, adjustment of management, discussion with other providers, nursing and ancillary staff involved in patient's care documentation, 16 Minutes HPI Consult Data Date of Consult: 12/21/24 HPI Narrative Reason for Consultation: Postop medical management HPI Narrative: CLARI SCHMITT, is a 54-year-old female history of thyroid disease, asthma, GERD presented to [facility] 12/21/2024 for lumbar fusion. Hospitalist consulted for postoperative medical management. Patient evaluated at bedside. Patient seen shortly after arriving to room, denies any chest pain or shortness of breath, no nausea or abdominal pain. No new or acute complaints [facility], [facility] Medical History (Updated 12/21/24 @ 16:[address] Meredith Cardozo MD) Asthma Back pain Cancer Damage to cervix after ectopic Depression DVT (deep venous thrombosis) Gallbladder abscess Gastric reflux History of hiatal hernia History of steroid therapy Morbid obesity Normal hysteroscopy Post-menopausal Thyroid disease Wears glasses Home Medications ?Medication ?Instructions ?Recorded ?Last Taken ?Type omeprazole magnesium 20 mg 20 mg PO QDAY 07/05/24 12/20/24 History tablet,delayed release (Prilosec OTC) cetirizine 10 mg capsule (Zyrtec) 10 mg PO QDAY PRN allergy symptoms 10/04/24 12/20/24 History diaper,brief,adult,disposable 10/04/24 Unknown History (Khushboo Super Brief) lactobacillus combination no.9 4 4,000 mmu cells PO QDAY 10/04/24 12/20/24 History billion cell capsule (Adult 50 Plus Probiotic) oxycodone 5 mg capsule 5 mg PO BID PRN pain 10/04/24 Unknown History CORTISTOP 2 tab PO DAILY 12/07/24 12/20/24 History THYROMIN 1 tab PO DAILY 12/07/24 12/20/24 History albuterol sulfate 90 mcg/actuation 2 puff inhalation Q4H PRN PRN 12/07/24 Unknown History aerosol inhaler shortness of breath or wheezing cholecalciferol (vitamin D3) 50 100 mcg PO QDAY 12/07/24 12/20/24 History mcg (2,000 unit) capsule (Vitamin D3) vitamin B complex (Balanced B-50 1 tab PO DAILY 12/07/24 12/20/24 History tablet) magnesium 200 mg tablet 200 mg PO QDAY 12/13/24 12/20/24 History Allergy/AdvReac Type Severity Reaction Status Date / Time No Known Allergies Allergy Verified 12/21/24 09:49 Family History Mother No problems noted. Father No problems noted. Surgical History Delivery by section Hx laparoscopic cholecystectomy Hx of hysterectomy Hx of rotator cuff surgery Social History Smoking Status: Never smoker alcohol intake: current ROS ROS Narrative ROS reviewed, pertinent positives and negatives as above Physical Exam Narrative General: Tired, seen shortly after coming to her room but is able to answer questions HEENT: Atraumatic, normocephalic Eyes: extraocular movements grossly intact Neck: Supple Respiratory: normal respiratory effort, clear to auscultation bilaterally Cardiovascular: Regular rate and rhythm GI: nondistended Extremities: Moving all extremities Neuro: No overt focal neurological deficits Psych: Cooperative Lab / Micro Data 12/09/24 10:14 12/09/24 10:14 Charges/Coding Visit Charges Office Visits / Consults: 04366 OV L2 Est 10min
--- NOTE | 2024-12-21 18:11 | POSTOPAN2_ITS ---
Anesthesia Postop Eval I Sum Postop Eval Completion status Anesthesia document: Postop Eval 1 completed: Yes Anesthesia Postop Eval I Summary Anesthesia Postop Eval I Summary: Anesthesia Postop Eval I: Assessment Summary Airway patent Yes 12/21/24 14:45 [email or web address] Spontaneous unlabored Yes 12/21/24 14:45 [email or web address] respirations Mental status nausea No 12/21/24 14:45 [email or web address] Vomiting No 12/21/24 14:45 [email or web address] Anesthesia Postop Eval I: Fluid Summary Crystalloid volume administer 1,500 12/21/24 14:45 [email or web address] (ml) Colloids volume administered ( ml) Blood Product volume administered (ml) Total IV fluid infused 1,500 12/21/24 14:45 [email or web address] Anesthesia Postop Eval I: Summary Notes Anesthesia Complication No 12/21/24 14:45 [email or web address] Anesthesia Complication Comment: Post-operative progress note Anesthesia: Postop Eval II Evaluation Mental status: Awake Pain Level: 0 nausea: No Vomiting: No Complications Anesthesia Complication: No
--- NOTE | 2024-12-21 18:11 | PCM.POSTANE2 ---
Anesthesia Postop Eval I Sum Postop Eval Completion status Anesthesia document: Postop Eval 1 completed: Yes Anesthesia Postop Eval I Summary Anesthesia Postop Eval I Summary: Anesthesia Postop Eval I: Assessment Summary Airway patent Yes 12/21/24 14:45 [email or web address] [email or web address] Spontaneous unlabored Yes 12/21/24 14:45 [email or web address] [email or web address] respirations Mental status nausea No 12/21/24 14:45 [email or web address] [email or web address] Vomiting No 12/21/24 14:45 [email or web address] [email or web address] Anesthesia Postop Eval I: Fluid Summary Crystalloid volume administer 1,500 12/21/24 14:45 [email or web address] [email or web address] (ml) Colloids volume administered ( ml) Blood Product volume administered (ml) Total IV fluid infused 1,500 12/21/24 14:45 [email or web address] [email or web address] Anesthesia Postop Eval I: Summary Notes Anesthesia Complication No 12/21/24 14:45 [email or web address] [email or web address] Anesthesia Complication Comment: Post-operative progress note Anesthesia: Postop Eval II Evaluation Mental status: Awake Pain Level: 0 nausea: No Vomiting: No Complications Anesthesia Complication: No
[2024-12-21] MEDS: Cefazolin 2 GM in 0.9% Normal Saline (100mL Bag) 100 ML IV (19:36)
[2024-12-21] MEDS: 0.9% Saline Lock 10 ML Syringe IV (22:29)
[2024-12-21] MEDS: Senna/Docusate Sodium 1 Tablet 2 TABLET PO (22:31)
[2024-12-22 00:54] VITALS: BP 125/79; PULSE 83; RESP 16; TEMP 36.8; O2SAT 95
[2024-12-22] MEDS: 0.9% Saline Lock 10 ML Syringe IV ×4 (00:56→06:59)
[2024-12-22 03:06] VITALS: BP 130/87; PULSE 83; RESP 18; TEMP 36.9; O2SAT 96
[2024-12-22] MEDS: Cefazolin 2 GM in 0.9% Normal Saline (100mL Bag) 100 ML IV (03:15)
--- NOTE | 2024-12-22 04:30 | RAD_ITS ---
PROCEDURE: LUMBAR SPINE 2 OR 3 VIEWS 12/22/2024 REASON FOR EXAM: S/P LUMBAR FUSION TECHNIQUE: LUMBAR SPINE 2 OR 3 VIEWS COMPARISON: 10/04/2024. FINDINGS: Unchanged exaggerated lumbar lordosis. Unremarkable low lumbar fusion metallic hardware at L5-S1. Mild levoscoliosis apex at L3. T12-L1: Normal disc height. Normal endplates. Normal alignment of the vertebrae. L1-2: Normal disc height. Normal endplates. Normal alignment of the vertebrae. L2-3: Normal disc height. Normal endplates. Normal alignment of the vertebrae. L3-4: Normal disc height. Normal endplates. Normal alignment of the vertebrae. L4-5: Normal disc height. Normal endplates. Normal alignment of the vertebrae. L5-S1: Normal disc height. Normal endplates. Normal alignment of the vertebrae. The soft tissue structures are unremarkable. RAD/Lumbar Spine 2 or 3 Views IMPRESSION: Unchanged exaggerated lumbar lordosis. Unremarkable low lumbar fusion metallic hardware at L5-S1. Mild levoscoliosis apex at L3. Reading Location: [facility]
[2024-12-22 05:50] VITALS: BP 134/83; PULSE 77; RESP 16; TEMP 36.6; O2SAT 100
[2024-12-22 07:35] LABS: Hematocrit 39.0 % (37-47); Hemoglobin 12.7 g/dL (12.0-15.0); Immature Granulocytes Count 0.060 X10^3/uL (0.0-0.0); Mean Corp Hgb Conc 32.6 g/dL (32-36); Mean Corpuscular Volume 92.9 fL (81-99); Mean Platelet Vol. 12.0 fl (6.2-12.0); NRBC Flagged by Analyzer 0 % (0-5); POSITIVE COUNT YES; Platelet Count 195 K/mm3 (150-450); RBC Distribution Width CV 12.7 % (11.6-14.6); RBC Distribution Width SD 43.6 fl (35.1-43.9); Red Blood Count 4.20 M/mm3 (4.2-5.4); White Blood Count 15.6 K/mm3 (4.4-11.0)
[2024-12-22 08:13] LABS: Anion Gap 12 (5-15); BUN 6 mg/dL (4-19); BUN/Creat Ratio 8.0 RATIO (10-20); Calcium,Total 9.8 mg/dL (7.6-11.0); Carbon Dioxide 20.0 mmol/L (21.0-32.0); Chloride 101 mmol/L (98-108); Estimated Creatinine Clearance 102.25 ml/min (50-250); Free T3 2.0 pg/mL (2.18-3.98); Glucose 114 mg/dL (70-99); Potassium 4.2 mmol/L (3.3-5.1)
[2024-12-22 08:18] LABS: Differential Indicated SCAN CRITERIA MET
[2024-12-22] MEDS: Senna/Docusate Sodium 1 Tablet 2 TABLET PO (08:23)
[2024-12-22 08:30] VITALS: BP 124/74; PULSE 65; RESP 14; TEMP 36.5; O2SAT 97
--- NOTE | 2024-12-22 08:36 | PCM.PN.HOSP ---
Subjective Subjective Doing well, no issues overnight. She is complaining of some surgical pain. Moves lower extremities Objective Data Objective Data Vital Signs: Vital Signs Temp Pulse Resp BP Pulse Ox O2 Del Method O2 Flow Rate 97.8 F 77 16 134/83 H 100 Room Air 3 12/22/24 05:50 12/22/24 05:50 12/22/24 05:50 12/22/24 05:50 12/22/24 05:50 12/22/24 05:50 12/21/24 17:34 Oxygen Flow Rate (L/min) 3 Oxygen Delivery Method Room Air Weight: 250 lb Body Mass Index (BMI) 41.5 Intake & Output: Intake and Output for Last 24 Hours 12/21/24 12/22/24 12/23/24 03:59 03:59 03:59 Intake Total 442 / 442 317.5 / 317.5 Output Total 50 / 50 Balance 392 / 392 317.5 / 317.5 Lab / Micro Data 12/22/24 06:40 12/22/24 06:40 Labs: Laboratory Results - last 24 hr 12/22/24 06:40: WBC 15.6 H, RBC 4.20, Hgb 12.7, Hct 39.0, MCV 92.9, MCH 30.2, MCHC 32.6, RDW Std Deviation 43.6, RDW Coeff of Sonia 12.7, Plt Count 195, MPV 12.0, Immature Gran % (Auto) 0.400, Neut % (Auto) 81.7 H, Lymph % (Auto) 9.4 L, Meade % (Auto) 8.3, Eos % (Auto) 0.1, Baso % (Auto) 0.1, Absolute Neuts (auto) 12.7 H, Absolute Lymphs (auto) 1.46, Nucleated RBC % 0, Platelet Estimate ADEQUATE, Sodium 133, Potassium 4.2, Chloride 101, Carbon Dioxide 20.0 L, Anion Gap 12, BUN 6, Creatinine 0.79, Estim Creat Clear Calc 102.25, Est GFR (MDRD) Non-Af 89, BUN/Creatinine Ratio 8.0 L, Glucose 114 H, Calcium 9.8, Free T4 1.00, Free T3 pg/dL 2.0 L Micro: Microbiology 12/09/24 10:14 Swab (Method) Nasal Screen MRSA/MSSA - Final Radiography Diagnostic Testing: Radiology Impression Lumbar Spine X-Ray 12/21/24 10:30 IMPRESSION: As above. Reading Location: [facility] Lumbar Spine X-Ray 12/22/24 04:30 IMPRESSION: Unchanged exaggerated lumbar lordosis. Unremarkable low lumbar fusion metallic hardware at L5-S1. Mild levoscoliosis apex at L3. Reading Location: [place] [address] Physical Exam Narrative General: Alert, Oriented x3, Cooperative, No apparent distress HEENT: Atraumatic, PERRLA, EOMI, Normocephalic Oral: Moist Mucosa Neck: Supple, No JVD Lungs: Diminished, Normal air movement, No rhonchi, No wheeze, No rales Cardiovascular: Regular rate, Regular Rhythm, Normal S1, Normal S2, No murmurs Abdomen: Soft, Non Tender, Non-Distended, No Hepato-splenomegaly Extremities: No edema Skin: Dressing CDI Musculoskeletal: No Tenderness to Palpation of Joints or Extremities Neurological: No focal neurological deficits, moves all extremities Psych/Mental Status: Normal Affect, Appropriate Assessment & Plan Assessment/Plan (1) Thyroid disease: PLAN: Plan 1. L5-S1 spondylolisthesis with disc degeneration and foraminal stenosis status post L5-S1 lumbar fusion on 12/21/2024 ? Pain management per primary ? PT/OT ? Leukocytosis is reactive ? Medically stable for discharge 2. Hypothyroidism ? TSH is 11 with a T3 that is low and a T4 that is normal ? I recommend outpatient follow-up with her PCP with rechecking of labs and initiation of thyroid medications ? She takes thiamine which is a dietary supplement however given what her lab work looks like I would recommend prescribed medication 3. GERD ? Stable ? Continue with PPI 4. History of asthma ? Stable ? Continue with inhalers as needed DVT: Per primary Will sign off, please call with questions Charges/Coding Visit Charges Office Visits / Consults: 58599 OV L3 Est 20min
[2024-12-22 08:39] VITALS: BP 126/81; PULSE 64; RESP 18; TEMP 36.4; O2SAT 97
--- NOTE | 2024-12-22 12:25 | DCINST_ITS ---
Discharge Instructions DC O2, CPAP, BIPAP needs Home O2 Discharge instructions: No Dressing / Incision Weight Bearing Status: Weight bearing as tolerated Dressing / Incision Call your doctor if your incision/area has: Sudden Increased Bleeding and Foul Smelling Discharge Remove Dressing in: 5 days Follow Up Care Test Results: Test results from this visit will be discussed in further detail at your follow- up appointment, if applicable. Discharge Plan Admission Admit Date/Time: 12/21/24 14:32 Attending Provider: Chepe Riddle Primary Care Provider: Mo Hathaway Consulting Providers: Ernesto Castellanos Instructions Patient Instructions: Lumbar Fusion Dc Additional Instructions / Restrictions: Keep Tegaderm and gauze clean and dry. If Tegaderm is intact, okay to shower. After 5 days remove Tegaderm and gauze and cover with a Band-Aid. Replace Band- Aid daily thereafter. No bending lifting or twisting. Follow-up in clinic in 2 weeks. Discharge Orders/Prescriptions Prescriptions: New acetaminophen 500 mg Tablet 1,000 mg PO Q8 Qty: 30 0RF methocarbamol 500 mg Tablet 750 mg PO TID PRN (Reason: pain/spasms) Qty: 60 0RF oxycodone 5 mg Tablet 2.5 - 5 mg PO Q6H PRN (Reason: pain) 7 Days Qty: 28 0RF sennosides-docusate sodium [Stimulant Laxative Plus] 8.6-50 mg Tablet 2 tab PO BID PRN (Reason: constipation) Qty: 14 0RF meloxicam 15 mg tablet 15 mg PO DAILY Qty: 30 0RF Rx Instructions: take once a day Continued omeprazole magnesium [Prilosec OTC] 20 mg tablet,delayed release (DR/EC) 20 mg PO QDAY Zyrtec 10 mg capsule 10 mg PO QDAY PRN (Reason: allergy symptoms) (DME) Khushboo Super Brief Misc See Rx Instructions .ROUTE Rx Instructions: As directed Adult 50 Plus Probiotic 4 billion cell capsule 4,000 mmu cells PO QDAY Rx Instructions: administer with a meal magnesium 200 mg tablet 200 mg PO QDAY albuterol sulfate 90 mcg/actuation HFA aerosol inhaler 2 puff INHALATION Q4H PRN PRN (Reason: shortness of breath or wheezing) vitamin B complex [Balanced B-50] Tablet 1 tab PO DAILY THYROMIN 1 tab PO DAILY cholecalciferol (vitamin D3) [Vitamin D3] 50 mcg (2,000 unit) capsule 100 mcg PO QDAY CORTISTOP 2 tab PO DAILY Discontinued oxycodone 5 mg capsule 5 mg PO BID PRN (Reason: pain) Referrals / Follow Up: Mo Hathaway MD [Primary Care Provider] - Disposition Disposition (needs filled in before D/C Order can be placed): Home, Self Care
[2024-12-22 12:27] VITALS: BP 120/74; PULSE 74; RESP 18; TEMP 36.6; O2SAT 99
--- NOTE | 2024-12-22 13:16 | PCM.PN.ORT ---
Subjective Subjective Postop day 1 L5-S1 TLIF. Patient is doing relatively well postoperatively with minimal pain. Patient reports that she has been up and walking. PT/OT cleared for discharge. Patient was seen at the bedside today. Seen with Dr. Riddle. Objective Data Objective Data Vital Signs: Vital Signs Temp Pulse Resp BP Pulse Ox O2 Del Method O2 Flow Rate 97.6 F L 64 18 126/81 H 97 Room Air 3 12/22/24 08:39 12/22/24 08:39 12/22/24 08:39 12/22/24 08:39 12/22/24 08:39 12/22/24 08:39 12/21/24 17:34 Oxygen Flow Rate (L/min) 3 Oxygen Delivery Method Room Air Weight: 250 lb Body Mass Index (BMI) 41.5 Intake & Output: Intake and Output for Last 24 Hours 12/20/24 12/21/24 12/22/24 23:59 23:59 23:59 Intake Total 332 / 332 427.5 / 427.5 Output Total 50 / 50 Balance 282 / 282 427.5 / 427.5 Lab / Micro Data 12/22/24 06:40 12/22/24 06:40 Labs: Laboratory Results - last 24 hr 12/22/24 06:40: WBC 15.6 H, RBC 4.20, Hgb 12.7, Hct 39.0, MCV 92.9, MCH 30.2, MCHC 32.6, RDW Std Deviation 43.6, RDW Coeff of Sonia 12.7, Plt Count 195, MPV 12.0, Immature Gran % (Auto) 0.400, Neut % (Auto) 81.7 H, Lymph % (Auto) 9.4 L, Stanley % (Auto) 8.3, Eos % (Auto) 0.1, Baso % (Auto) 0.1, Absolute Neuts (auto) 12.7 H, Absolute Lymphs (auto) 1.46, Nucleated RBC % 0, Platelet Estimate ADEQUATE, Sodium 133, Potassium 4.2, Chloride 101, Carbon Dioxide 20.0 L, Anion Gap 12, BUN 6, Creatinine 0.79, Estim Creat Clear Calc 102.25, Est GFR (MDRD) Non-Af 89, BUN/Creatinine Ratio 8.0 L, Glucose 114 H, Calcium 9.8, Free T4 1.00, Free T3 pg/dL 2.0 L Micro: Microbiology 12/09/24 10:14 Swab (Method) Nasal Screen MRSA/MSSA - Final Radiography Diagnostic Testing: Radiology Impression Lumbar Spine X-Ray 12/21/24 10:30 IMPRESSION: As above. Reading Location: [facility] Lumbar Spine X-Ray 12/22/24 04:30 IMPRESSION: Unchanged exaggerated lumbar lordosis. Unremarkable low lumbar fusion metallic hardware at L5-S1. Mild levoscoliosis apex at L3. Reading Location: [place] [id number] Physical Exam Narrative Neurological examination of the lower extremity shows 5X5 power. Normal sensation across all dermatomes. Physical examination of the back shows gauze and Tegaderm CDI. Const alert, oriented x3 and no apparent distress Assessment & Plan Assessment/Plan (1) Status post lumbar spinal fusion: PLAN: Plan Patient is postop day 1 L5-S1 TLIF. Obtained reviewed x-rays today which show hardware and bone graft in good position. PT/OT cleared. Plan for discharge home today. Home meds include oxycodone, acetaminophen, meloxicam, methocarbamol, senna. OARRS reviewed. Reviewed restrictions and no bending, lifting, twisting. Reviewed and educated on the use of the incentive spirometer. She will follow-up in the clinic in 2 weeks. Patient is in agreement.
--- NOTE | 2024-12-22 13:35 | PHA.DC.COU.R ---
Pharmacy [facility] has performed discharge medication counseling for this patient. The patient was counseled on the following discharge medications and changes in medications for homegoing review. - Acetaminophen, meloxicam, methocarbamol, oxycodone, senna/docusate The Reason for Use, instructions for use, and potential side effects were reviewed for all new medications. The patient's questions regarding all of their medications were answered. The patient was able to verbally demonstrate an understanding of their discharge medications.
== END 2024-12-22 13:49 | disposition home or self-care (01) ==
LOC: SDC 14:40 → MS3 14:40
PROVIDERS: Anesthesiology; Student in an Organized Health Care Education/Training Program; Admitting Provider Orthopaedic Surgery Orthopaedic Surgery of the Spine; PCP Family Medicine; Referring Provider Orthopaedic Surgery Orthopaedic Surgery of the Spine; Visit Provider Orthopaedic Surgery Orthopaedic Surgery of the Spine
PROC: (CPT 22633; principal; 2024-12-21 11:00)
DX: M48.07 Spinal stenosis, lumbosacral region (principal); E66.01 Morbid (severe) obesity due to excess calories; Z68.41 Body mass index [BMI] 40.0-44.9, adult; K21.9 Gastro-esophageal reflux disease without esophagitis; M43.17 Spondylolisthesis, lumbosacral region; E03.9 Hypothyroidism, unspecified; M51.370 Other intervertebral disc degeneration, lumbosacral region with discogenic back pain only; Z86.718 Personal history of other venous thrombosis and embolism; Z79.899 Other long term (current) drug therapy; J45.909 Unspecified asthma, uncomplicated
CPT/HCPCS: 22633; 22840; 22853; 20930; 20936; 00670; 36415; 72100; 76000; 80048; 82962; 83036; 83735; 84439; 84443; 84481; 85025; 86703; 86706; 86708; 86803; 86850; 86900; 86901; 87081; 94668; 96365; 96366; 96375; 96376; 97162; 97166; 99221; C1713; A4216; G0378; J2405; J3475